=== PATIENT | female | born 1950 | race Caucasian/White ===

== ENCOUNTER 2019-11-13 18:07 | Inpatient (IN) | payer OTHER, SELFPAY ==
[~2019-11-13] VITALS: Ht 165.1 cm; Wt 79.8 kg
[2019-11-13 18:11] VITALS: BP_SYST 90
[2019-11-13 20:12] LABS: EOSINOPHILS # (AUTO) 0.1 K/uL (0.0-0.4); EOSINOPHILS % (AUTO) 1.6 % (0.0-4.0); HEMATOCRIT 40.5 % (36-48); HEMOGLOBIN 13.6 g/dL (12.0-16.0); LYMPHOCYTES # (AUTO) 1.2 K/uL (1.0-5.5); MEAN CORPUSCULAR HEMOGLOBIN 32 pg (27-31); MEAN CORPUSCULAR HGB CONC 34 % (32-36); MEAN CORPUSCULAR VOLUME 95 fL (79.0-98.0); MONOCYTES # (AUTO) 0.4 K/uL (0.0-1.0); MONOCYTES % (AUTO) 11.7 % (1.7-9.3); NEUTROPHILS # (AUTO) 1.8 K/uL (1.8-7.7); NEUTROPHILS % (AUTO) 50.7 % (40.0-70.0); RED BLOOD CELL COUNT(AUTO) 4.25 MIL/uL (4.2-6.2); RED CELL DISTRIBUTION WIDTH 13.2 % (9.0-15.0); WHITE BLOOD COUNT (AUTO) 3.5 K/uL (4.8-10.8)
[2019-11-13 20:21] LABS: CALCIUM 8.9 mg/dL (8.4-11.0); CREATININE 1.64 mg/dL (0.55-1.30); POTASSIUM 3.9 mmol/L (3.5-5.1)
[2019-11-13 20:26] LABS: ALBUMIN 2.9 g/dL (3.4-4.8); TOTAL BILIRUBIN 0.5 mg/dL (0.0-1.0)
[2019-11-13 20:27] LABS: INR 1.1 (0.8-1.2); PROTHROMBIN TIME 10.6 SECS (9.5-12.5)
[2019-11-13 21:31] LABS: PLATELET COUNT (AUTO) 94 K/uL (130-430)
[2019-11-13] MEDS ORDERED: D5/0.45 NS 1,000 ML IV SCH (22:30)
[2019-11-13 23:48] LABS: BILIRUBIN,URINE NEGATIVE (NEGATIVE); BLOOD, URINE NEGATIVE (NEGATIVE); CLARITY/URINE SL CLOUDY (CLEAR); COLOR,URINE YELLOW (YELLOW); GLUCOSE,URINE NEGATIVE (NEGATIVE); KETONES,URINE TRACE (NEGATIVE); LEUKOCYTE ESTERASE ,URINE 1+ (NEGATIVE); NITRITE, URINE NEGATIVE (NEGATIVE); PH,URINE 5.5 (5.0-8.0); PROTEIN URINE TRACE (NEGATIVE); UROBILINOGEN,URINE 0.2 (0.2-1.0)
[2019-11-14] MEDS ORDERED: 0.45% NS 500 ML IV ONE
[2019-11-14] MEDS ORDERED: DEXTROSE 50% JECT 50 ML DISP.SYRIN IVP PRN
[2019-11-14] MEDS ORDERED: NACL 0.9% 1,000 ML IV ONE (00:15)
[2019-11-14 00:40] LABS: BACTERIA,URINE MODERATE /HPF (None Seen); RBC,URINE 0-3 /HPF (0-3)
[2019-11-14 00:41] LABS: HYALINE CASTS, URINE 0-10 /LPF (None Seen)
[2019-11-14] MEDS: cefTRIAXone 1 GM in D5W 50 ML IV SCH (02:00)
[2019-11-14] MEDS ORDERED: cefTRIAXone 1 GM VIAL ONE (02:03)
[2019-11-14 02:04] LABS: BARBITURATE, URINE NEGATIVE (NEG <=200); BENZODIAZEPINE, URINE POSITIVE (NEG <=150); CANNABINOID, URINE POSITIVE (NEG <=50); COCAINE, URINE POSITIVE (NEG <=150); METHAMPHETAMINES SCREEN,URINE NEGATIVE (NEG <=500); OPIATE, URINE NEGATIVE (NEG <=100); PHENCYCLIDINE SCREEN,URINE NEGATIVE (NEG <=25); UR TRICYCLIC ANTIDEPRESSANTS POSITIVE (NEG <=300); URINE AMPHETAMINE NEGATIVE (NEG <=500); URINE METHADONE NEGATIVE (NEG <=200); URINE OXYCODONE SCREEN NEGATIVE (NEG <=100); URINE PROPOXYPHENE SCREEN NEGATIVE (NEG <=300)
[2019-11-14 07:24] LABS: INR 1.1 (0.8-1.2); PROTHROMBIN TIME 10.6 SECS (9.5-12.5)
[2019-11-14 07:38] LABS: BASOPHILS % (AUTO) 0.2 % (0.0-2.0); EOSINOPHILS % (AUTO) 1.4 % (0.0-4.0); HEMATOCRIT 39.4 % (36-48); HEMOGLOBIN 13.3 g/dL (12.0-16.0); LYMPHOCYTES # (AUTO) 1.3 K/uL (1.0-5.5); LYMPHOCYTES % (AUTO) 40.4 % (20.5-51.5); MEAN CORPUSCULAR HEMOGLOBIN 32 pg (27-31); MEAN CORPUSCULAR HGB CONC 34 % (32-36); MEAN CORPUSCULAR VOLUME 94 fL (79.0-98.0); MONOCYTES # (AUTO) 0.3 K/uL (0.0-1.0); MONOCYTES % (AUTO) 10.3 % (1.7-9.3); NEUTROPHILS # (AUTO) 1.5 K/uL (1.8-7.7); NEUTROPHILS % (AUTO) 47.7 % (40.0-70.0); PLATELET COUNT (AUTO) 89 K/uL (130-430); RED BLOOD CELL COUNT(AUTO) 4.19 MIL/uL (4.2-6.2); RED CELL DISTRIBUTION WIDTH 12.8 % (9.0-15.0); WHITE BLOOD COUNT (AUTO) 3.1 K/uL (4.8-10.8)
[2019-11-14 07:47] LABS: CALCIUM 7.9 mg/dL (8.4-11.0); POTASSIUM 3.2 mmol/L (3.5-5.1)
[2019-11-14 07:48] LABS: ALBUMIN 2.6 g/dL (3.4-4.8); C-REACTIVE PROTEIN QUANT 0.8 mg/dL (0-0.5); CREATININE 1.37 mg/dL (0.55-1.30); TOTAL BILIRUBIN 0.4 mg/dL (0.0-1.0)
[2019-11-14 08:00] VITALS: BP_SYST 88
[2019-11-14] MEDS: ENOXAPARIN SODIUM 40 MG/0.4 ML SYRINGE SUBCUT SCH (09:00)
[2019-11-14] MEDS ORDERED: CHOLECALCIFEROL (VITAMIN D3) 2,000 UNIT TABLET PO SCH (09:00)
[2019-11-14] MEDS: CHOLECALCIFEROL (VITAMIN D3) 2,000 UNIT TABLET PO SCH ×2 (09:30→21:00)
[2019-11-14] MEDS: ASCORBIC ACID 500 MG TABLET PO SCH ×2 (09:30→21:00)
[2019-11-14] MEDS: MAGNESIUM OXIDE 400 MG TABLET PO SCH ×2 (09:30→21:00)
[2019-11-14] MEDS ORDERED: POTASSIUM CHLORIDE 20 MEQ TAB.PRT.SR PO ONE (11:00)
[2019-11-14 12:00] VITALS: BP_SYST 86
[2019-11-14 15:55] VITALS: BP_SYST 66
[2019-11-14] MEDS: LR 1,000 ML IV SCH (16:00)
[2019-11-14 20:00] VITALS: BP_SYST 106
[2019-11-15] MEDS: LR 1,000 ML IV SCH ×4 (00:33→20:00)
[2019-11-15] MEDS: cefTRIAXone 1 GM in D5W 50 ML IV SCH ×3 (00:33)
[2019-11-15 00:44] VITALS: BP_SYST 102
[2019-11-15 07:54] LABS: CALCIUM 8.1 mg/dL (8.4-11.0); CREATININE 0.99 mg/dL (0.55-1.30); POTASSIUM 3.9 mmol/L (3.5-5.1)
[2019-11-15 08:00] VITALS: BP_SYST 100
[2019-11-15 08:09] LABS: BASOPHILS % (AUTO) 0.2 % (0.0-2.0); EOSINOPHILS # (AUTO) 0.1 K/uL (0.0-0.4); EOSINOPHILS % (AUTO) 2.7 % (0.0-4.0); LYMPHOCYTES # (AUTO) 0.8 K/uL (1.0-5.5); LYMPHOCYTES % (AUTO) 27.3 % (20.5-51.5); MEAN CORPUSCULAR HEMOGLOBIN 32 pg (27-31); MEAN CORPUSCULAR HGB CONC 34 % (32-36); MEAN CORPUSCULAR VOLUME 94 fL (79.0-98.0); MONOCYTES # (AUTO) 0.3 K/uL (0.0-1.0); MONOCYTES % (AUTO) 11.7 % (1.7-9.3); NEUTROPHILS # (AUTO) 1.6 K/uL (1.8-7.7); NEUTROPHILS % (AUTO) 58.1 % (40.0-70.0); PLATELET COUNT (AUTO) 79 K/uL (130-430); RED BLOOD CELL COUNT(AUTO) 4.05 MIL/uL (4.2-6.2); RED CELL DISTRIBUTION WIDTH 12.9 % (9.0-15.0); WHITE BLOOD COUNT (AUTO) 2.8 K/uL (4.8-10.8)
[2019-11-15] MEDS: MAGNESIUM OXIDE 400 MG TABLET PO SCH ×2 (09:00→21:00)
[2019-11-15] MEDS ORDERED: POTASSIUM CHLORIDE 20 MEQ TAB.PRT.SR PO SCH (09:00)
[2019-11-15] MEDS: ASCORBIC ACID 500 MG TABLET PO SCH ×2 (09:00→21:00)
[2019-11-15] MEDS: ENOXAPARIN SODIUM 40 MG/0.4 ML SYRINGE SUBCUT SCH (09:00)
[2019-11-15] MEDS: CHOLECALCIFEROL (VITAMIN D3) 2,000 UNIT TABLET PO SCH ×2 (09:00→21:00)
[2019-11-15 12:00] VITALS: BP_SYST 110
[2019-11-15] MEDS: DECADRON 4 MG TABLET PO SCH (14:15)
[2019-11-15] MEDS: cefTRIAXone 1 GM IVPB PREMIX 50 ML IV SCH (15:00)
[2019-11-15 18:55] VITALS: BP_SYST 112
[2019-11-15 20:00] VITALS: BP_SYST 109
[2019-11-16] VITALS: BP_SYST 106
[2019-11-16] MEDS: LR 1,000 ML IV SCH ×2 (06:00→17:17)
[2019-11-16 08:00] VITALS: BP_SYST 123
[2019-11-16] MEDS: CHOLECALCIFEROL (VITAMIN D3) 2,000 UNIT TABLET PO SCH ×2 (09:00→21:00)
[2019-11-16] MEDS: MAGNESIUM OXIDE 400 MG TABLET PO SCH ×2 (09:00→21:00)
[2019-11-16] MEDS: ASCORBIC ACID 500 MG TABLET PO SCH ×2 (09:00→21:00)
[2019-11-16] MEDS: ENOXAPARIN SODIUM 40 MG/0.4 ML SYRINGE SUBCUT SCH (09:00)
[2019-11-16 12:00] VITALS: BP_SYST 118
[2019-11-16] MEDS: DECADRON 4 MG TABLET PO SCH (13:24)
[2019-11-16 16:00] VITALS: BP_SYST 116
[2019-11-16] MEDS: cefTRIAXone 1 GM IVPB PREMIX 50 ML IV SCH (16:00)
[2019-11-16 20:00] VITALS: BP_SYST 121
[2019-11-17] VITALS: BP_SYST 123
[2019-11-17 00:41] LABS: BILIRUBIN,URINE NEGATIVE (NEGATIVE); BLOOD, URINE NEGATIVE (NEGATIVE); CLARITY/URINE CLEAR (CLEAR); COLOR,URINE YELLOW (YELLOW); GLUCOSE,URINE NEGATIVE (NEGATIVE); KETONES,URINE 1+ (NEGATIVE); LEUKOCYTE ESTERASE ,URINE NEGATIVE (NEGATIVE); NITRITE, URINE NEGATIVE (NEGATIVE); PH,URINE 7.5 (5.0-8.0); PROTEIN URINE NEGATIVE (NEGATIVE); UROBILINOGEN,URINE 0.2 (0.2-1.0)
[2019-11-17] MEDS: LR 1,000 ML IV SCH ×3 (03:20→20:59)
[2019-11-17 08:00] VITALS: BP_SYST 108
[2019-11-17] MEDS: ENOXAPARIN SODIUM 40 MG/0.4 ML SYRINGE SUBCUT SCH (09:00)
[2019-11-17] MEDS: ASCORBIC ACID 500 MG TABLET PO SCH ×2 (09:09→20:58)
[2019-11-17] MEDS: CHOLECALCIFEROL (VITAMIN D3) 2,000 UNIT TABLET PO SCH ×2 (09:09→20:58)
[2019-11-17] MEDS: MAGNESIUM OXIDE 400 MG TABLET PO SCH ×2 (09:09→20:58)
[2019-11-17 12:00] VITALS: BP_SYST 124
[2019-11-17] MEDS ORDERED: ONDANSETRON 4 MG ODT TAB PO ONE (13:15)
[2019-11-17] MEDS: cefTRIAXone 1 GM IVPB PREMIX 50 ML IV SCH (14:30)
[2019-11-17] MEDS: DECADRON 4 MG TABLET PO SCH (14:30)
[2019-11-17 16:00] VITALS: BP_SYST 117
[2019-11-17 20:00] VITALS: BP_SYST 123
[2019-11-17] MEDS: APIXABAN 2.5 MG TABLET PO SCH (21:03)
[2019-11-18] VITALS: BP_SYST 122
[2019-11-18 08:00] VITALS: BP_SYST 141
[2019-11-18 08:47] LABS: BASOPHILS % (AUTO) 0.1 % (0.0-2.0); EOSINOPHILS % (AUTO) 0.1 % (0.0-4.0); HEMATOCRIT 36.3 % (36-48); HEMOGLOBIN 12.7 g/dL (12.0-16.0); LYMPHOCYTES # (AUTO) 0.7 K/uL (1.0-5.5); LYMPHOCYTES % (AUTO) 13.7 % (20.5-51.5); MEAN CORPUSCULAR HEMOGLOBIN 32 pg (27-31); MEAN CORPUSCULAR HGB CONC 35 % (32-36); MEAN CORPUSCULAR VOLUME 93 fL (79.0-98.0); MONOCYTES # (AUTO) 0.4 K/uL (0.0-1.0); MONOCYTES % (AUTO) 7.6 % (1.7-9.3); NEUTROPHILS % (AUTO) 78.5 % (40.0-70.0); PLATELET COUNT (AUTO) 97 K/uL (130-430); RED BLOOD CELL COUNT(AUTO) 3.92 MIL/uL (4.2-6.2); RED CELL DISTRIBUTION WIDTH 12.8 % (9.0-15.0); WHITE BLOOD COUNT (AUTO) 5.1 K/uL (4.8-10.8)
[2019-11-18 09:01] LABS: C-REACTIVE PROTEIN QUANT 0.4 mg/dL (0-0.5); CALCIUM 8.1 mg/dL (8.4-11.0); CREATININE 0.85 mg/dL (0.55-1.30); POTASSIUM 3.3 mmol/L (3.5-5.1)
[2019-11-18] MEDS: ASCORBIC ACID 500 MG TABLET PO SCH ×2 (09:03→20:27)
[2019-11-18] MEDS: APIXABAN 2.5 MG TABLET PO SCH ×2 (09:03→21:00)
[2019-11-18] MEDS: CHOLECALCIFEROL (VITAMIN D3) 2,000 UNIT TABLET PO SCH ×2 (09:03→20:27)
[2019-11-18] MEDS: MAGNESIUM OXIDE 400 MG TABLET PO SCH ×2 (09:03→20:27)
[2019-11-18] MEDS: LR 1,000 ML IV SCH ×2 (09:03→14:48)
[2019-11-18] MEDS ORDERED: POTASSIUM CHLORIDE 20 MEQ TAB.PRT.SR PO ONE (10:45)
[2019-11-18] MEDS: ONDANSETRON 4 MG ODT TAB PO PRN ×2 (11:09→20:27)
[2019-11-18 12:00] VITALS: BP_SYST 142
[2019-11-18] MEDS: DECADRON 4 MG TABLET PO SCH ×2 (14:15→14:29)
[2019-11-18] MEDS: cefTRIAXone 1 GM IVPB PREMIX 50 ML IV SCH (14:30)
[2019-11-18 16:00] VITALS: BP_SYST 149
[2019-11-18 20:00] VITALS: BP_SYST 128
[2019-11-19] MEDS: LR 1,000 ML IV SCH ×2 (02:36→14:05)
[2019-11-19 08:00] VITALS: BP_SYST 112
[2019-11-19] MEDS: MAGNESIUM OXIDE 400 MG TABLET PO SCH ×2 (09:12→20:05)
[2019-11-19] MEDS: CHOLECALCIFEROL (VITAMIN D3) 2,000 UNIT TABLET PO SCH ×2 (09:13→20:05)
[2019-11-19] MEDS: ASCORBIC ACID 500 MG TABLET PO SCH ×2 (09:13→20:05)
[2019-11-19] MEDS: APIXABAN 2.5 MG TABLET PO SCH ×2 (09:16→20:04)
[2019-11-19 12:30] VITALS: BP_SYST 125
[2019-11-19] MEDS: cefTRIAXone 1 GM IVPB PREMIX 50 ML IV SCH (14:39)
[2019-11-19] MEDS: DECADRON 4 MG TABLET PO SCH (14:39)
[2019-11-19 20:00] VITALS: BP_SYST 110
[2019-11-19] MEDS: ONDANSETRON 4 MG ODT TAB PO PRN (20:05)
[2019-11-20] VITALS: BP_SYST 118
[2019-11-20 08:07] VITALS: BP_SYST 113
[2019-11-20] MEDS: CHOLECALCIFEROL (VITAMIN D3) 2,000 UNIT TABLET PO SCH ×2 (10:06→21:00)
[2019-11-20] MEDS: APIXABAN 2.5 MG TABLET PO SCH ×2 (10:06→21:00)
[2019-11-20] MEDS: MAGNESIUM OXIDE 400 MG TABLET PO SCH ×2 (10:06→21:00)
[2019-11-20] MEDS: ASCORBIC ACID 500 MG TABLET PO SCH ×2 (10:06→21:00)
[2019-11-20] MEDS: LR 1,000 ML IV SCH ×3 (12:00→20:00)
[2019-11-20 12:01] VITALS: BP_SYST 116
[2019-11-20] MEDS: DECADRON 4 MG TABLET PO SCH (14:15)
[2019-11-20] MEDS: cefTRIAXone 1 GM IVPB PREMIX 50 ML IV SCH (15:49)
[2019-11-20 16:00] VITALS: BP_SYST 107
[2019-11-20 20:00] VITALS: BP_SYST 104
[2019-11-20] MEDS: ONDANSETRON 4 MG ODT TAB PO PRN (21:00)
[2019-11-21] VITALS: BP_SYST 112
[2019-11-21] MEDS: LR 1,000 ML IV SCH ×2 (06:00→21:00)
[2019-11-21 08:00] VITALS: BP_SYST 117
[2019-11-21] MEDS: ASCORBIC ACID 500 MG TABLET PO SCH ×2 (08:22→21:00)
[2019-11-21] MEDS: CHOLECALCIFEROL (VITAMIN D3) 2,000 UNIT TABLET PO SCH ×2 (08:22→21:00)
[2019-11-21] MEDS: MAGNESIUM OXIDE 400 MG TABLET PO SCH ×2 (08:22→21:00)
[2019-11-21] MEDS: ONDANSETRON 4 MG ODT TAB PO PRN ×2 (08:26→21:00)
[2019-11-21] MEDS: APIXABAN 2.5 MG TABLET PO SCH ×2 (08:26→21:00)
[2019-11-21 12:00] VITALS: BP_SYST 127
[2019-11-21] MEDS: cefTRIAXone 1 GM IVPB PREMIX 50 ML IV SCH (14:42)
[2019-11-21] MEDS: DECADRON 4 MG TABLET PO SCH (14:42)
[2019-11-21 16:00] VITALS: BP_SYST 127
[2019-11-21 20:00] VITALS: BP_SYST 114
[2019-11-22] VITALS: BP_SYST 118
[2019-11-22] MEDS: LR 1,000 ML IV SCH ×3 (02:00→17:53)
[2019-11-22 08:15] VITALS: BP_SYST 119
[2019-11-22] MEDS: ASCORBIC ACID 500 MG TABLET PO SCH ×2 (09:42→21:00)
[2019-11-22] MEDS: MAGNESIUM OXIDE 400 MG TABLET PO SCH ×2 (09:42→21:00)
[2019-11-22] MEDS: CHOLECALCIFEROL (VITAMIN D3) 2,000 UNIT TABLET PO SCH ×2 (09:42→21:00)
[2019-11-22] MEDS: APIXABAN 2.5 MG TABLET PO SCH ×2 (09:42→21:00)
[2019-11-22 12:19] VITALS: BP_SYST 122
[2019-11-22] MEDS: DECADRON 4 MG TABLET PO SCH (15:32)
[2019-11-22] MEDS: cefTRIAXone 1 GM IVPB PREMIX 50 ML IV SCH (15:33)
[2019-11-22 16:48] VITALS: BP_SYST 125
[2019-11-22 20:46] VITALS: BP_SYST 136
[2019-11-22] MEDS: ONDANSETRON 4 MG ODT TAB PO PRN (21:00)
[2019-11-23 00:24] VITALS: BP_SYST 132
[2019-11-23] MEDS: LR 1,000 ML IV SCH ×2 (06:51→16:25)
[2019-11-23 09:30] VITALS: BP_SYST 118
[2019-11-23] MEDS: APIXABAN 2.5 MG TABLET PO SCH ×2 (09:44→21:26)
[2019-11-23] MEDS: CHOLECALCIFEROL (VITAMIN D3) 2,000 UNIT TABLET PO SCH ×2 (09:44→21:26)
[2019-11-23] MEDS: MAGNESIUM OXIDE 400 MG TABLET PO SCH ×2 (09:44→21:26)
[2019-11-23] MEDS: ASCORBIC ACID 500 MG TABLET PO SCH ×2 (09:44→21:26)
[2019-11-23 12:05] VITALS: BP_SYST 124
[2019-11-23] MEDS: cefTRIAXone 1 GM IVPB PREMIX 50 ML IV SCH (14:54)
[2019-11-23] MEDS: DECADRON 4 MG TABLET PO SCH (14:55)
[2019-11-23 17:00] VITALS: BP_SYST 125
[2019-11-23 20:00] VITALS: BP_SYST 122
[2019-11-23] MEDS: ONDANSETRON 4 MG ODT TAB PO PRN (21:00)
[2019-11-24 00:20] VITALS: BP_SYST 118
[2019-11-24] MEDS: LR 1,000 ML IV SCH ×2 (06:00→13:08)
[2019-11-24] MEDS: CHOLECALCIFEROL (VITAMIN D3) 2,000 UNIT TABLET PO SCH ×3 (08:23→21:00)
[2019-11-24] MEDS: MAGNESIUM OXIDE 400 MG TABLET PO SCH ×3 (08:23→21:00)
[2019-11-24] MEDS: ASCORBIC ACID 500 MG TABLET PO SCH ×3 (08:23→21:00)
[2019-11-24] MEDS: APIXABAN 2.5 MG TABLET PO SCH ×2 (08:31→21:00)
[2019-11-24] MEDS: cefTRIAXone 1 GM IVPB PREMIX 50 ML IV SCH (14:13)
[2019-11-24] MEDS: DECADRON 4 MG TABLET PO SCH (14:13)
[2019-11-25] MEDS: LR 1,000 ML IV SCH ×3 (04:15→09:40)
[2019-11-25] MEDS: MAGNESIUM OXIDE 400 MG TABLET PO SCH ×2 (08:28→21:00)
[2019-11-25] MEDS: APIXABAN 2.5 MG TABLET PO SCH ×2 (08:28→21:00)
[2019-11-25] MEDS: CHOLECALCIFEROL (VITAMIN D3) 2,000 UNIT TABLET PO SCH ×2 (08:29→21:00)
[2019-11-25] MEDS: ASCORBIC ACID 500 MG TABLET PO SCH ×2 (08:29→21:00)
[2019-11-25] MEDS: DECADRON 4 MG TABLET PO SCH (13:54)
[2019-11-25] MEDS: cefTRIAXone 1 GM IVPB PREMIX 50 ML IV SCH (14:25)
[2019-11-26] MEDS: LR 1,000 ML IV SCH ×2 (07:57→15:27)
[2019-11-26] MEDS: ASCORBIC ACID 500 MG TABLET PO SCH ×2 (09:00→21:00)
[2019-11-26] MEDS: MAGNESIUM OXIDE 400 MG TABLET PO SCH ×2 (09:00→21:00)
[2019-11-26] MEDS: APIXABAN 2.5 MG TABLET PO SCH ×2 (09:00→21:00)
[2019-11-26] MEDS: CHOLECALCIFEROL (VITAMIN D3) 2,000 UNIT TABLET PO SCH ×2 (09:00→21:00)
[2019-11-26] MEDS: DECADRON 4 MG TABLET PO SCH (14:15)
[2019-11-26] MEDS: cefTRIAXone 1 GM IVPB PREMIX 50 ML IV SCH (15:27)
[2019-11-26] MEDS: INSULIN REGULAR, HUMAN 100 UNITS/ML, 10 ML VIAL (humuLIN R) SUBCUT PRN (21:45)
[2019-11-27] MEDS: LR 1,000 ML IV SCH (01:33)
[2019-11-27] MEDS: INSULIN REGULAR, HUMAN 100 UNITS/ML, 10 ML VIAL (humuLIN R) SUBCUT PRN (07:02)
[2019-11-27] MEDS: APIXABAN 2.5 MG TABLET PO SCH ×2 (09:00→21:00)
[2019-11-27] MEDS: MAGNESIUM OXIDE 400 MG TABLET PO SCH ×2 (09:00→21:00)
[2019-11-27] MEDS: ASCORBIC ACID 500 MG TABLET PO SCH ×2 (09:00→21:00)
[2019-11-27] MEDS: CHOLECALCIFEROL (VITAMIN D3) 2,000 UNIT TABLET PO SCH ×2 (09:00→21:00)
[2019-11-27] MEDS ORDERED: HALOPERIDOL LACTATE 5 MG/ML VIAL IM PRN ×2 (13:15→14:45)
[2019-11-27] MEDS: NORMAL SALINE 5 ML DISP.SYRIN IVF SCH ×2 (13:47→21:46)
[2019-11-27] MEDS: DECADRON 4 MG TABLET PO SCH (13:47)
[2019-11-27] MEDS ORDERED: COMMUNICATION ORDER XX ONE (14:30)
[2019-11-27] MEDS: cefTRIAXone 1 GM IVPB PREMIX 50 ML IV SCH (14:39)
[2019-11-27] MEDS ORDERED: LORazepam 2 MG/ML VIAL IVP PRN (14:45)
[2019-11-27] MEDS ORDERED: DIPHENHYDRAMINE INJ 50 MG/ML VIAL IM PRN (14:45)
[2019-11-27] MEDS ORDERED: LORazepam 2 MG/ML VIAL IM PRN (14:58)
[2019-11-28] MEDS: NORMAL SALINE 5 ML DISP.SYRIN IVF SCH ×3 (06:00→22:00)
[2019-11-28] MEDS: ASCORBIC ACID 500 MG TABLET PO SCH ×2 (08:36→21:00)
[2019-11-28] MEDS: MAGNESIUM OXIDE 400 MG TABLET PO SCH ×2 (08:36→21:00)
[2019-11-28] MEDS: APIXABAN 2.5 MG TABLET PO SCH ×2 (08:36→21:00)
[2019-11-28] MEDS: CHOLECALCIFEROL (VITAMIN D3) 2,000 UNIT TABLET PO SCH ×2 (08:36→21:00)
[2019-11-28] MEDS: DECADRON 4 MG TABLET PO SCH (13:42)
[2019-11-28] MEDS: cefTRIAXone 1 GM IVPB PREMIX 50 ML IV SCH ×2 (14:54→16:21)
[2019-11-28 16:00] VITALS: BP_SYST 120
[2019-11-28 16:34] LABS: CALCIUM 8.5 mg/dL (8.4-11.0); CHLORIDE 103 mmol/L (98-107); CREATININE 1.14 mg/dL (0.55-1.30); GLUCOSE 112 mg/dL (70-99); POTASSIUM 3.3 mmol/L (3.5-5.1); SODIUM SERUM 134 mmol/L (136-145); UREA NITROGEN, BLOOD 11 mg/dL (8-21)
[2019-11-28 16:38] LABS: ANION GAP < 3 (5-15); GFR AFRICAN AMERICAN 61 mL/min (>90)
[2019-11-28 16:43] LABS: BASOPHILS % (AUTO) 0.6 % (0.0-2.0); EOSINOPHILS # (AUTO) 0.1 K/uL (0.0-0.4); EOSINOPHILS % (AUTO) 1.7 % (0.0-4.0); HEMATOCRIT 41.5 % (36-48); LYMPHOCYTES % (AUTO) 12.9 % (20.5-51.5); MEAN CORPUSCULAR HEMOGLOBIN 32 pg (27-31); MEAN CORPUSCULAR HGB CONC 34 % (32-36); MEAN CORPUSCULAR VOLUME 95 fL (79.0-98.0); MONOCYTES # (AUTO) 0.6 K/uL (0.0-1.0); NEUTROPHILS # (AUTO) 5.8 K/uL (1.8-7.7); NEUTROPHILS % (AUTO) 76.8 % (40.0-70.0); PLATELET COUNT (AUTO) 220 K/uL (130-430); RED BLOOD CELL COUNT(AUTO) 4.37 MIL/uL (4.2-6.2); RED CELL DISTRIBUTION WIDTH 13.8 % (9.0-15.0); WHITE BLOOD COUNT (AUTO) 7.5 K/uL (4.8-10.8)
[2019-11-28 17:51] LABS: ERYTHROCYTE SEDIMENTATION RATE 20 MM/HR (0-20)
[2019-11-28 20:00] VITALS: BP_SYST 127
[2019-11-29] VITALS: BP_SYST 127
[2019-11-29] MEDS: NORMAL SALINE 5 ML DISP.SYRIN IVF SCH (06:00)
[2019-11-29 07:26] LABS: BASOPHILS # (AUTO) 0.1 K/uL (0.0-0.2); BASOPHILS % (AUTO) 0.8 % (0.0-2.0); EOSINOPHILS # (AUTO) 0.2 K/uL (0.0-0.4); EOSINOPHILS % (AUTO) 2.8 % (0.0-4.0); HEMATOCRIT 37.9 % (36-48); HEMOGLOBIN 12.9 g/dL (12.0-16.0); LYMPHOCYTES # (AUTO) 1.3 K/uL (1.0-5.5); LYMPHOCYTES % (AUTO) 19.9 % (20.5-51.5); MEAN CORPUSCULAR HEMOGLOBIN 32 pg (27-31); MEAN CORPUSCULAR HGB CONC 34 % (32-36); MEAN CORPUSCULAR VOLUME 94 fL (79.0-98.0); MONOCYTES # (AUTO) 0.7 K/uL (0.0-1.0); NEUTROPHILS # (AUTO) 4.4 K/uL (1.8-7.7); NEUTROPHILS % (AUTO) 66.5 % (40.0-70.0); PLATELET COUNT (AUTO) 162 K/uL (130-430); RED BLOOD CELL COUNT(AUTO) 4.05 MIL/uL (4.2-6.2); RED CELL DISTRIBUTION WIDTH 13.7 % (9.0-15.0); WHITE BLOOD COUNT (AUTO) 6.6 K/uL (4.8-10.8)
[2019-11-29 07:32] LABS: ALBUMIN 2.6 g/dL (3.4-4.8); C-REACTIVE PROTEIN QUANT 0.9 mg/dL (0-0.5); CALCIUM 8.2 mg/dL (8.4-11.0); CREATININE 0.83 mg/dL (0.55-1.30); POTASSIUM 3.1 mmol/L (3.5-5.1); TOTAL BILIRUBIN 0.8 mg/dL (0.0-1.0)
[2019-11-29 08:10] VITALS: BP_SYST 120
[2019-11-29] MEDS: MAGNESIUM OXIDE 400 MG TABLET PO SCH (08:39)
[2019-11-29] MEDS: CHOLECALCIFEROL (VITAMIN D3) 2,000 UNIT TABLET PO SCH (08:39)
[2019-11-29] MEDS: ASCORBIC ACID 500 MG TABLET PO SCH (08:39)
[2019-11-29] MEDS: APIXABAN 2.5 MG TABLET PO SCH (08:40)
[2019-11-29] MEDS ORDERED: POTASSIUM CHLORIDE 20 MEQ TAB.PRT.SR PO ONE (10:15)
[2019-11-29 11:34] LABS: ERYTHROCYTE SEDIMENTATION RATE 20 MM/HR (0-20)
[2019-11-29 12:35] VITALS: BP_SYST 120
== END 2019-11-29 12:45 | disposition left against medical advice (07) | DRG 177 ==
LOC: SED 18:07 → SMU 21:53
PROVIDERS: ADMIT Internal Medicine Hospice and Palliative Medicine; ATTEND Internal Medicine Hospice and Palliative Medicine
DX: U07.1 COVID-19 (principal); E43 Unspecified severe protein-calorie malnutrition; N17.0 Acute kidney failure with tubular necrosis; J12.89 Other viral pneumonia; N39.0 Urinary tract infection, site not specified; F25.9 Schizoaffective disorder, unspecified; E11.9 Type 2 diabetes mellitus without complications; F41.9 Anxiety disorder, unspecified; F32.9 Major depressive disorder, single episode, unspecified; Z53.29 Procedure and treatment not carried out because of patient's decision for other reasons; F14.10 Cocaine abuse, uncomplicated; F12.10 Cannabis abuse, uncomplicated; F13.10 Sedative, hypnotic or anxiolytic abuse, uncomplicated; Z68.29 Body mass index [BMI] 29.0-29.9, adult
CPT/HCPCS: 36415; 71045; 80048; 80053; 80307; 81000-TC; 81003; 82962; 83036; 83615-TC; 84484; 85025; 85610-TC; 85651-TC; 85730-TC; 86140; 87081; 87086; 93005; 99285; J0696; J1200; J1630; J1650; J1815; J2060; J7030; J7060; J7120; J8540; Q0162; U0003-CS